=== PATIENT | male | born 1980 | race Caucasian/White ===

== ENCOUNTER → 2016-06-18 | Outpatient (CLI) | payer OTHER ==
[~2016-06-18] MED LIST: ANDROGEL2.5 GM TD; ANUSOL HC,ANUCO25 MG PR; ATORVASTATIN CA40 MG PO; CICLOPIROX30 GM TP; CLARITIN10 M3 PO; CORTEF10 MG PO; CORTEF5 M1 PO; DDAVP0.2 MG PO; DESMOPRESSIN A0.2 M1 PO; DEXAMETHASO4 MG/1 ML IM; DULERA 100 MCG/13 GM IH; FLONASE16 GM NS; MIRALAX17 GM PO; PLAVIX75 MG PO; PROTONIX40 MG PO; SYNTHROID200 MCG PO; SYNTHROID300 MCG PO; TOPAMAX100 MG PO; TOPAMAX25 MG PO; TRAZODONE HCL50 MG PO; TYLENOL EXTRA500 MG PO; VENTOLIN HFA18 GM IH; VITAMIN D32000 UNI1 PO
== END | disposition home or self-care (01) ==
DX: I69.391 Dysphagia following cerebral infarction (principal)
CPT/HCPCS: 92611 GN; G8996 GN; G8997 GN; G8998 GN